=== PATIENT | male | born 1975 | race Caucasian/White ===

== ENCOUNTER 2023-10-12 22:47 | Emergency (ER) | payer MEDICAID, SELFPAY ==
[2023-10-12 22:58] VITALS: BP 157/95; BP 184/112; PULSE 76; PULSE 78; RESP 18; TEMP 37.1; O2SAT 98; BMI 35.2
--- NOTE | 2023-10-13 00:24 | ED_ITS ---
HPI - Fall General Chief Complaint: Fall Stated Complaint: FALL BACKWARDS FROM SEATED,+HEADSTRIKE,1INCH LAC Time Seen by Provider: 10/13/23 00:19 Source: patient Mode of arrival: ambulatory Limitations: no limitations History of Present Illness HPI Narrative: Patient was getting a board game went to sit down nexus over lost balance fell backwards hitting his head to the edge of the table came in with laceration to back of the scalp, no loss of consciousness no other injury Related Data Allergies Allergy/AdvReac Type Severity Reaction Status Date / Time No Known Allergies Allergy Verified 10/12/23 23:17 Review of Systems Review of Systems: Yes all other systems are reviewed and are negative [facility] Social History Social History Alcohol intake: current Smoked in Last 30 Days: No Use of substances other than those prescribed or required for medical reasons: No Advance Directives: No Advance Directives Information Provided: Yes Physical Exam Vital Signs: Vital Signs: Last Vital Signs Temp 98.8 F 10/12/23 22:58 Pulse 76 10/12/23 22:58 Resp 18 10/12/23 22:58 BP 157/95 H 10/12/23 22:58 Pulse Ox 98 10/12/23 22:58 O2 Del Method Room Air 10/12/23 22:58 BMI result Body Mass Index 35.2 Appearance: Alert. Oriented X3. No acute distress. Eyes: PERRLA, No Nystagmus HEENT: Pharynx normal. Oral Mucosa moist laceration to the back of the scalp 3 cm in size Neck: Normal inspection. Neck supple. CVS: Normal heart rate and rhythm. Pulses normal. Respiratory: No respiratory distress. Equal air entry bilateral, Abdomen: Soft and nontender. Skin: Skin warm and dry. Normal skin color. Normal skin turgor. Neuro: Oriented X 3. No motor deficit. No sensory deficit.No cerebellar signs , cranial nerves II-XII intact Medications Administered Discontinued Medications Generic Name Dose Route Start Last Admin Trade Name Freq PRN Reason Stop Dose Admin Bacitracin 1 appl 10/13/23 00:43 10/13/23 01:08 Bacitracin Oint 0.9 Gm Packet TOPICAL 10/13/23 00:44 1 appl ONCE ONE Administration Protocol Procedures Laceration Laceration 1: Site: scalp Size (cm): 4 Description: linear Depth: simple, single layer Skin layer closed with: other (#6 tania) Medical Decision Making Medical Decision Making MDM Narrative: Patient after minor head injury no loss of consciousness clinically minor injury wound sutured using tania Discharge Plan Discharge Clinical Impression: Minor closed head injury, Laceration of scalp Patient Disposition: Home, Self-Care Instructions: Laceration (ED), Head Injury (ED) Additional Instructions: Local care as advised Staple removal in 7-10 days Stand Alone Forms: Work/School Release Interventions: ED Discharge Assessment Last Done: 10/13/23 01:10 Discharge Date/Time: 10/13/23 01:10
--- OUTSIDE RECORDS SUMMARY | 2023-10-13 00:46 | XMS_ITS | Continuity of Care Document ---
Author Name Unknown Organization [facility] Address [address] [place] [address]- Care Team Providers Care Rod Mill Operator Name Role Phone Chantelle Rivers Primary Care Physicia n Encounter [facility] Date(s): 02/28/22 - 02/28/[address] [address]- Discharge Disposition: A-D/C Home Attending Physician: Sergio REGAN, Mindy Harvey Admitting Physician: Mindy Hill MD Referring Physician: Not on Staff, Referring MD Allergies, Adverse Reactions, Alerts No Known Allergies Immunizations Given and Recorded Vaccine Date Status Refusal Reason tetanus/diphtheria/pertussis, acel(Tdap) 01/12/21 Given Medications aspirin 81 mg oral delayed release tablet 81 mg, 1, tablet, By Mouth, Daily, # 30 tablet, Refills 0, Maintenance, 02/28/22 11:43:00 EDT, Partial fill upon patient request if the prescription is for a schedule II opioid drug. Start Date: 02/28/22 Status: Ordered Flexeril Tablet By Mouth, 3 times a day, PRN, Maintenance, as needed for muscle spasm, non daily use due to horse shoe kidney , 03/30/15 15:27:00 Start Date: 03/30/15 Status: Ordered hydrochlorothiazide-olmesartan 12.5 mg-40 mg oral tablet 1 tablet, By Mouth, Daily, # 30 tablet, 0 Refills, Maintenance, 02/28/22 11:43:00 EDT, Tablet, Partial fill upon patient request if the prescription is for a schedule II opioid drug. Start Date: 02/28/22 Status: Ordered lisinopril 10 mg oral tablet 10 mg, 1, tablet, By Mouth, Daily, # 30 tablet, Refills 0, Tot. Refills 0, Maintenance, 11/03/20 15:33:00 EST, Route to Pharmacy Electronically, [facility]/pharmacy #[id number], Partial fill upon patient request if the prescription is for a schedule II opioid drug... Start Date: 11/03/20 Status: Ordered meclizine 25 mg oral tablet 1 tablet = 25 mg, By Mouth, Daily, # 30 tablet, 0 Refills, Maintenance, 02/28/22 11:46:00 EDT, Tablet, Partial fill upon patient request if the prescription is for a schedule II opioid drug. Start Date: 02/28/22 Status: Ordered tramadol 50 mg oral tablet 1 tablet = 50 mg, By Mouth, Every 12 hours, PRN as needed for pain, 0 Refills, Maintenance, 03/30/15 15:26:50, Tablet Start Date: 03/30/15 Status: Ordered Trazodone = 50 mg, By Mouth, Daily at bedtime, ? mg strength, 0 Refills, Maintenance, 03/30/15 15:27:12 Start Date: 03/30/15 Status: Ordered Problem List Condition Effective Dates Status Health Status Inform ant Anxiety(Confirmed) Active Chronic low back pain(Confirmed) Active Depression(Confirmed) Active Limitation due to disability(Confirmed) 1 Active Drug or alcohol risk assessm ent or counseling(Confirmed) 2 Active Horseshoe kidney(Confirmed) Active Lumbar spondylosis(Confirmed) Active 1initial Oswestry Disability Index: 60% ( severe disability ) on 03/30/15; initial [place] Back Pain Scale: 44 on 03/30/15; [place]: 2 on 03/30/15 2SOAPP-R: 39 on 03/30/15 Results Radiology Reports * Exam Date Time Procedure Performing Provider Status 02/28/22 12:48 PM Knee 1 or 2 Views Left Morro Hsieh (Verified) Notes: (Knee 1 or 2 Views Left) Reason For Exam: with Pain;Trauma RESULT: Knee 1 or 2 Views Left Left knee, 2 views Hx of Present Illness: Left Knee pain since Monday. No known injury Constant pulsating sharp pain. Tender upon palpation.; COMPARISON: None. FINDINGS: There is no evidence of acute or healing fracture, dislocation or bone lesion. No arthritic changes. No osteochondral defects or intra-articular loose bodies. No evidence of joint effusion. IMPRESSION: Normal. WSN: [id number] Ordering Physician: Abdelrahman Kumar By: Franck Crabtree MD Dictated Date/Time: 02/28/22 12:52 p Reviewed By: Franck Crabtree MD Signed By: Franck Crabtree MD Signed Date/Time: 02/28/22 12:52 pm Transcribed By: JACINTO Transcribed Date/Time: 02/28/22 12:51 pm Vital Signs Most recent to oldest [Reference Range]: 1 2 Height 175 cm (02/28/22 1:52 PM) 175 cm (02/28/22 11:39 AM) Weight 99.4 kg (02/28/22 11:39 AM) Oxygen Saturation [94-100 %] 99 % (02/28/22 1:52 PM) 98 % (02/28/22 11:39 AM) Pulse Rate [55-90 bpm] 86 bpm (02/28/22 1:52 PM) 86 bpm (02/28/22 11:39 AM) Blood Pressure [90-138/55-84 mm Hg] 136/ 92mm Hg (02/28/22 1:52 PM) 130/79mm Hg (02/28/22 11:39 AM) Respiratory Rate [16-30 br/min] 16 br/mi n (02/28/22 1:52 PM) 20 br/min (02/28/22 11:39 AM) Temperature [96.8-100.4 DegF] 98.5 DegF (02/28/22 1:52 PM) 98.5 DegF (02/28/22 11:39 AM) Mode of Delivery (Oxygen) Room air (02/28/22 1:52 PM) Room air (02/28/22 11:39 AM) Blood pressure sites Arm, left (02/28/22 1:52 PM) Arm, left (02/28/22 11:39 AM) Temperature Route Oral (02/28/22 1:52 PM) Temporal (02/28/22 11:39 AM) Dry Weight 99.4 kg (02/28/22 11:39 AM) Weight Obtained Via Standing scale (02/28/22 11:39 AM)
--- OUTSIDE RECORDS SUMMARY | 2023-10-13 00:46 | XMS_ITS | Continuity of Care Document ---
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 Date(s): 11/03/20 - 11/03/[address] [address]- Discharge Disposition: A-D/C Home Attending Physician: Pelon Cuba MD Admitting Physician: Pelon Cuba MD Referring Physician: Not on Staff, Referring MD Allergies, Adverse Reactions, Alerts Substance Reaction Severity Status NKA Active Medications Flexeril Tablet By Mouth, 3 times a day, PRN, Maintenance, as needed for muscle spasm, non daily use due to horse shoe kidney , 03/30/15 15:27:00 Start Date: 03/30/15 Status: Ordered hydrochlorothiazide-lisinopril 12.5 mg-10 mg oral tablet 1 tablet, By Mouth, Daily, 0 Refills, Maintenance Start Date: 04/07/10 Status: Ordered lisinopril 10 mg oral tablet 10 mg, 1, tablet, By Mouth, Daily, # 30 tablet, Refills 0, Tot. Refills 0, Maintenance, 11/03/20 15:33:00 EST, Route to Pharmacy Electronically, [facility]/pharmacy #[id number], Partial fill upon patient request if the prescription is for a schedule II opioid drug... Start Date: 11/03/20 Status: Ordered PT eval and treat PT eval and treat, See Instructions, # 1 units, Refills 0, Tot. Refills 0, Maintenance, 2/week, 4-6weeks, lumbar stabilization/core muscle strengthening, 04/14/15 9:16:48, Compound Start Date: 04/14/15 Status: Ordered tramadol 50 mg oral tablet 1 tablet = 50 mg, By Mouth, Every 12 hours, PRN as needed for pain, 0 Refills, Maintenance, 03/30/15 15:26:50, Tablet Start Date: 03/30/15 Status: Ordered Trazodone = 50 mg, By Mouth, Daily at bedtime, ? mg strength, 0 Refills, Maintenance, 03/30/15 15:27:12 Start Date: 03/30/15 Status: Ordered Vitamin D 53442 iu oral capsule 1 capsule = 50,000 International_Units, By Mouth, Every week, 0 Refills, Maintenance Start Date: 04/07/10 Status: Ordered Problem List Condition Effective Dates Status Health Status Inform ant Anxiety(Confirmed) Active Chronic low back pain(Confirmed) Active Depression(Confirmed) Active Limitation due to disability(Confirmed) 1 Active Drug or alcohol risk assessm ent or counseling(Confirmed) 2 Active Horseshoe kidney(Confirmed) Active Lumbar spondylosis(Confirmed) Active 1initial Oswestry Disability Index: 60% ( severe disability ) on 03/30/15; initial [place] Back Pain Scale: 44 on 03/30/15; [place]: 2 on 03/30/15 2SOAPP-R: 39 on 03/30/15 Vital Signs Most recent to oldest [Reference Range]: 1 2 3 Height 175 cm (11/03/20 3:42 PM) 175 cm (11/03/20 2:25 PM) 175 cm (11/03/20 2:23 PM) Weight 109 kg (11/03/20 2:25 PM) 109 kg (11/03/20 2:23 PM) Oxygen Saturation [94-100 %] 97 % (11/03/20 3:42 PM) 100 % (11/03/20 2:23 PM) Pulse Rate [55-90 bpm] 70 bpm (11/03/20 3:42 PM) 86 bpm (11/03/20 2:23 PM) Body Mass Index [18.5-24.99] 35.59 *>HHI* (11/03/20 2:23 PM) Blood Pressure [90-138/55-84 mm Hg] 156/109mm Hg *H* (11/03/20 3:42 PM) 171/104mm Hg *H* (11/03/20 2:23 PM) Respiratory Rate [16-30 br/min] 16 br/min (11/03/20 3:42 PM) 18 br/min (11/03/20 2:23 PM) Temperature [96.8-100.4 DegF] 97.9 DegF (11/03/20 2:23 PM) Mode of Delivery (Oxygen) Room air (11/03/20 3:42 PM) Room air (11/03/20 2:23 PM) Blood pressure sites Arm, left (11/03/20 3:42 PM) Arm, left (11/03/20 2:23 PM) Temperature Route Temporal (11/03/20 2:23 PM) Dry Weight 109 kg (11/03/20 2:25 PM) 109 kg (11/03/20 2:23 PM)
--- OUTSIDE RECORDS SUMMARY | 2023-10-13 00:46 | XMS_ITS | Continuity of Care Document ---
Author Name Unknown Organization [facility] Address [address] [place] [address]- Care Team Providers Care Jackhammer Operator Name Role Phone Maria Teresa Figueroa Primary Care Physician Encounter [facility] Date(s): 03/27/21 - 03/27/[address] [address]- Discharge Disposition: A-D/C Walkout Attending Physician: Not on Staff, Attending MD Admitting Physician: Not on Staff, Admitting MD Referring Physician: Not on Staff, Referring MD Allergies, Adverse Reactions, Alerts Substance Reaction Severity Status NKA Active Immunizations Given and Recorded Vaccine Date Status Refusal Reason tetanus/diphtheria/pertussis, acel(Tdap) 01/12/21 Given Medications Flexeril Tablet By Mouth, 3 times a day, PRN, Maintenance, as needed for muscle spasm, non daily use due to horse shoe kidney , 03/30/15 15:27:00 Start Date: 03/30/15 Status: Ordered lisinopril 10 mg oral tablet 10 mg, 1, tablet, By Mouth, Daily, # 30 tablet, Refills 0, Tot. Refills 0, Maintenance, 11/03/20 15:33:00 EST, Route to Pharmacy Electronically, [facility]/pharmacy #[id number], Partial fill upon patient request if the prescription is for a schedule II opioid drug... Start Date: 11/03/20 Status: Ordered tramadol 50 mg oral tablet [...] ( severe disability ) on 03/30/15; initial [place] Back Pain Scale: 44 on 03/30/15; [place]: 2 on 03/30/15 2SOAPP-R: 39 on 03/30/15 Vital Signs Most recent to oldest [Reference Range]: 1 2 3 Height 175 cm (03/27/21 7:42 PM) Weight 106.6 kg (03/27/21 7:42 PM) 106.6 kg (03/27/21 4:41 PM) Oxygen Saturation [94-100 %] 99 % (03/27/21 7:42 PM) 100 % (03/27/21 4:41 PM) 98 % (03/27/21 12:48 PM) Pulse Rate [55-90 bpm] 64 bpm (03/27/21 7:42 PM) 77 bpm (03/27/21 4:41 PM) 80 bpm (03/27/21 12:48 PM) Blood Pressure [90-138/55-84 mm Hg] 146/95mm Hg *H* (03/27/21 7:42 PM) 157/99mm Hg *H* (03/27/21 4:41 PM) Respiratory Rate [16-30 br/min] 16 br/min (03/27/21 7:42 PM) Temperature [96.8-100.4 DegF] 98.1 DegF (03/27/21 7:42 PM) 98.9 DegF (03/27/21 4:41 PM) Mode of Delivery (Oxygen) Room air (03/27/21 7:42 PM) Room air (03/27/21 4:41 PM) Room air (03/27/21 12:48 PM) Blood pressure sites Arm, left (03/27/21 7:42 PM) Arm, left (03/27/21 4:41 PM) Temperature Route Oral (03/27/21 7:42 PM) Dry Weight 106.6 kg (03/27/21 7:42 PM) Weight Obtained Via Standing scale (03/27/21 7:42 PM) Dry Weight Obtained Via Standing scale (03/27/21 7:42 PM)
--- OUTSIDE RECORDS SUMMARY | 2023-10-13 00:46 | XMS_ITS | Continuity of Care Document ---
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 Lining Setter Name Role Phone Maria Teresa Figueroa Primary Care Physician Encounter [facility] Date(s): 01/12/21 - 01/12/[address] [address]- Discharge Disposition: A-D/C Home Attending Physician: Yordy Lei DO Admitting Physician: Yordy Lei DO Referring Physician: Not on Staff, Referring MD Allergies, Adverse Reactions, Alerts Substance Reaction Severity Status NKA Active Immunizations Given and Recorded Vaccine Date Status Refusal Reason tetanus/diphtheria/pertussis, acel(Tdap) 01/12/21 Given Medications bacitracin-polymyxin B ophthalmic 500 u-43432 u/gm ointment 1 inches, Eye, Left, 4 times a day, for 7 days, # 3.5 Gm, 0 Refills, Acute 01/19/21 11:40:00 EDT, 01/12/21 11:40:00 EDT, Ophth Ointment, [facility]/pharmacy #[id number], Partial fill upon patient request if the prescription is for a schedule II opioid drug., 1 inc... Start Date: 01/12/21 Stop Date: 01/19/21 Status: Ordered Flexeril Tablet By Mouth, 3 times a day, PRN, Maintenance, as needed for muscle spasm, non daily use due to horse shoe kidney , 03/30/15 15:27:00 Start Date: 03/30/15 Status: Ordered lisinopril 10 mg oral tablet 10 mg, 1, tablet, By Mouth, Daily, # 30 tablet, Refills 0, Tot. Refills 0, Maintenance, 11/03/20 15:33:00 EST, Route to Pharmacy Electronically, [facility]/pharmacy #[id number], Partial fill upon patient request if the [...] ( severe disability ) on 03/30/15; initial [place] Back Pain Scale: 44 on 03/30/15; [place]: 2 on 03/30/15 2SOAPP-R: 39 on 03/30/15 Vital Signs Most recent to oldest [Reference Range]: 1 2 Height 177 cm (01/12/21 11:48 AM) 177 cm (01/12/21 9:34 AM) Weight 106.9 kg (01/12/21 11:48 AM) 106.9 kg (01/12/21 9:34 AM) Oxygen Saturation [94-100 %] 100 % (01/12/21 11:48 AM) 100 % (01/12/21 9:34 AM) Pulse Rate [55-90 bpm] 66 bpm (01/12/21 11:48 AM) 75 bpm (01/12/21 9:34 AM) Blood Pressure [90-138/55-84 mm Hg] 150/ 76mm Hg *H* (01/12/21 11:48 AM) 161/89mm Hg *H* (01/12/21 9:34 AM) Respiratory Rate [16-30 br/min] 18 br/mi n (01/12/21 11:48 AM) 18 br/min (01/12/21 9:34 AM) Temperature [96.8-100.4 DegF] 98.2 DegF (01/12/21 11:48 AM) 98 DegF (01/12/21 9:34 AM) Mode of Delivery (Oxygen) Room air (01/12/21 11:48 AM) Room air (01/12/21 9:34 AM) Blood pressure sites Arm, right (01/12/21 9:34 AM) Temperature Route Oral (01/12/21 11:48 AM) Oral (01/12/21 9:34 AM) Dry Weight 106.9 kg (01/12/21 11:48 AM) 106.9 kg (01/12/21 9:34 AM) Weight Obtained Via Standing scale (01/12/21 9:34 AM) Dry Weight Obtained Via Standing scale (01/12/21 9:34 AM)
--- OUTSIDE RECORDS SUMMARY | 2023-10-13 00:46 | XMS_ITS | Continuity of Care Document ---
Author Name Unknown Organization [facility] al Address [address] [place] [address]- Care Team Providers Care Division Service Manager Name Role Phone Chantelle Rivers Primary Care Physicia n Encounter [facility] Date(s): 08/10/22 - 08/10/[address] [address]- Discharge Disposition: A-D/C Home Attending Physician: Parish Rhodes MD Admitting Physician: Parish Rhodes MD Referring Physician: Not on Staff, Referring [...] opioid drug. Start Date: 02/28/22 Status: Ordered hydrochlorothiazide-olmesartan 12.5 mg-40 mg oral tablet 1 tablet, By Mouth, Daily, # 30 tablet, 0 Refills, Maintenance, 02/28/22 11:43:00 EDT, Tablet, Partial fill upon patient request if the prescription is for a schedule II opioid drug. Start Date: 02/28/22 Status: Ordered Problem List Condition Confirmation Course Effective Dates Status Health St atus Informant Anxiety Confirmed Active Chronic low back pain Confirmed Active Depression Confirmed Active Limitation due to disability 1 Confirmed Active Drug or alcohol risk assessment or counseling 2 Confirmed Active Horseshoe kidney Confirmed Active Lumbar spondylosis Confirmed Active 1initial Oswestry Disability Index: 60% ( severe disability ) on 03/30/15; initial [place] Back Pain Scale: 44 on 03/30/15; [place]: 2 on 03/30/15 2SOAPP-R: 39 on 03/30/15 Vital Signs Most recent to oldest [Reference Range]: 1 2 Height 175 cm (08/10/22 5:35 PM) Weight 107.1 kg (08/10/22 5:35 PM) Oxygen Saturation [94-100 %] 98 % (08/10/22 8:44 PM) 96 % (08/10/22 5:36 PM) Pulse Rate [55-90 bpm] 72 bpm (08/10/22 8:44 PM) 86 bpm (08/10/22 5:36 PM) Blood Pressure [90-138/55-84 mm Hg] 141/ 91mm Hg *H* (08/10/22 8:44 PM) 155/90mm Hg *H* (08/10/22 5:36 PM) Respiratory Rate [16-30 br/min] 20 br/mi n (08/10/22 8:44 PM) 16 br/min (08/10/22 5:36 PM) Temperature [96.8-100.4 DegF] 98.3 DegF (08/10/22 5:36 PM) Mode of Delivery (Oxygen) Room air (08/10/22 8:44 PM) Room air (08/10/22 5:36 PM) Temperature Route Temporal (08/10/22 5:36 PM) Dry Weight 107.1 kg (08/10/22 5:35 PM) Weight Obtained Via Standing scale (08/10/22 5:35 PM) Dry Weight Obtained Via Standing scale (08/10/22 5:35 PM) Patient Care team information Personnel Name: Chantelle Rivers Address: Address: [address]
--- OUTSIDE RECORDS SUMMARY | 2023-10-13 00:46 | XMS_ITS | Continuity of Care Document ---
Author Name Unknown Organization [facility] al Address [address] [place] [address]- Care Team Providers Care Channel Director Name Role Phone Chantelle Rivers Primary Care Physicia n Encounter [facility] Date(s): 07/06/22 - 12/08/[address] [address]- Attending Physician: Wei Morales MD Admitting Physician: Wei Morales MD Allergies, Adverse Reactions, Alerts No Known [...] [place] Back Pain Scale: 44 on 03/30/15; [place]: 2 on 6/1/15 2SOAPP-R: 39 on 03/30/15 Patient Care team information Care Team Personnel Name: Chantelle Rivers Position: Reference Physician Member Role: PCP Address: Address: [address] [place] [address]- Care Team Related Persons Name: CARLY FARLEY Address: [place] [address] Name: BISI CLARK Name: MARYSOL CLARK Address: home UNKNOWN UM
--- OUTSIDE RECORDS SUMMARY | 2023-10-13 00:46 | XMS_ITS | Continuity of Care Document ---
Author Name Unknown Organization [facility] Address [address] [place] [address]- Care Team Providers Care Hims Clerk Name Role Phone Chantelle Rivers Primary Care Physicia n Encounter [facility] Date(s): 06/28/22 - 07/28/22 [facility] [address] [place] [address]- Attending Physician: Hiral Albright Admitting Physician: Hiral Albright Referring Physician: Hiral Albright Allergies, Adverse Reactions, Alerts No Known Allergies [...] 11/03/20 15:33:00 EST, Route to Pharmacy Electronically, [facility]/pharmacy #[id number], Partial fill upon patient request if the prescription is for a schedule II opioid drug... Start Date: 11/03/20 Status: Ordered meclizine 25 mg oral tablet 1 tablet = 25 mg, By Mouth, Daily, # 30 tablet, 0 Refills, Maintenance, 02/28/22 11:46:00 EDT, Tablet, Partial fill upon patient request if the prescription is for a schedule II opioid drug. Start Date: 02/28/22 Status: Ordered PEG-3350 with Electrolytes Lemon (Eqv-GoLYTELY) oral powder for reconstitution See Instructions, [place] instructions please. Mix the powder with water according to the product label. Follow the [facility] instructions stating when to drink the colon prep on the evening before the colonoscopy. 8 oz every 20 minutes., # 1 each,... Start Date: 06/28/22 Status: Ordered tramadol 50 mg oral tablet 1 tablet = 50 mg, By Mouth, Every 12 hours, PRN as needed for pain, 0 Refills, Maintenance, 03/30/15 15:26:50, Tablet Start Date: 03/30/15 Status: Ordered Trazodone = 50 mg, By Mouth, Daily at bedtime, ? mg strength, 0 Refills, Maintenance, 03/30/15 15:27:12 Start Date: 03/30/15 Status: Ordered Problem List Condition Confirmation Course [...] [place] Back Pain Scale: 44 on 03/30/15; [place]: 2 on 03/30/15 2SOAPP-R: 39 on 03/30/15 Patient Care team information Personnel Name: Chantelle Rivers Address: Address: [address] [place] [address]
[2023-10-13] MEDS: Bacitracin Oint 0.9 GM PACKET 1 APPL TOPICAL (01:08)
== END 2023-10-13 01:10 | disposition home or self-care (01) ==
PROVIDERS: Emergency Provider Internal Medicine
DX: S01.01XA Laceration without foreign body of scalp, initial encounter (principal); W01.10XA Fall on same level from slipping, tripping and stumbling with subsequent striking against unspecified object, initial encounter; Y93.9 Activity, unspecified; Y92.9 Unspecified place or not applicable; Y99.9 Unspecified external cause status
CPT/HCPCS: 12002; 99283; 99284

== ENCOUNTER 2024-10-26 21:52 | Emergency (ER) | payer MEDICAID, SELFPAY ==
[2024-10-26 21:59] VITALS: BP 169/99; PULSE 81; RESP 16; TEMP 36.9; O2SAT 96; BMI 37.2
[2024-10-26 22:36] LABS: MANUAL DIFF FLAG NO
[2024-10-26 22:39] LABS: Basophils Percent Auto 0.3 % (0-2); Eosinophils Absolute Auto 0.1 X10*3/uL (0.0-0.4); Eosinophils Percent Auto 0.6 % (0-4); Hematocrit 36.4 % (42.0-52.0); Hemoglobin 12.9 g/dl (14.0-18.0); Imm Gran Abs Auto 0.06 X10*3/uL (0.00-0.03); Imm Gran Pct Auto 0.5 % (0.0-0.4); Lymphocytes Absolute Auto 2.3 X10*3/uL (1.2-4.9); Lymphocytes Percent Auto 18.4 % (20-40); Mean Corpuscular HGB Conc 35.4 g/dl (31.0-36.0); Mean Corpuscular Hemoglobin 27.4 pg (27.0-33.0); Mean Corpuscular Volume 77.4 fL (80.0-98.0); Mean Platelet Volume 10.1 fL (9.4-12.4); Monocytes Absolute Auto 0.6 X10*3/uL (0.1-1.2); Neutrophils Absolute Auto 9.3 x10*3/uL (2.0-8.3); Neutrophils Percent Auto 75.2 % (45-73); Platelet Count 210 X10*3/uL (160-400); Red Cell Distribution Width 12.5 % (11.0-16.0); White Blood Count 12.4 X10*3/uL (4.8-10.8)
[2024-10-26 22:54] LABS: Alanine Aminotransferase 41 U/L (0-40); Albumin Level 4.3 g/dL (3.5-5.0); Alkaline Phosphatase 101 U/L (39-117); Anion Gap 14 (12-20); Aspartate Amino Transferase 32 U/L (5-37); Bilirubin Total 0.4 mg/dL (0.0-1.0); Blood Urea Nitrogen 18 mg/dL (9-16); Calcium 9.6 mg/dL (8.4-10.2); Carbon Dioxide 24 mmol/L (22-29); Chloride 106 mmol/L (96-108); Creatinine Clr Calc Pharmacy 95.5; Estimated Glomerular Filt Rate > 60; Glucose Random 143 mg/dL (60-115); Potassium 3.3 mmol/L (3.3-5.1); Sodium 141 mmol/L (135-145); Total Protein 7.3 g/dL (6.5-8.0)
--- NOTE | 2024-10-26 23:23 | PC.NURSE ---
Patient provided urine specimen, urine noted to be clear, yellow with 0.4 mm yellow stone. Patient reports some relief in pain after passing a stone. Urine sent to lab.
[2024-10-26 23:24] LABS: Appearance Urine Cloudy; Color Urine Yellow; Glucose Urine UA Negative (Negative); Leukocyte Esterase Urine Negative (Negative); Nitrite Urine Negative (Negative); UMIC TRIGGER UACC YES; Urine Blood Large (3+) (Negative); Urine Ketones Negative (Negative); Urine Protein Negative (Neg-Trace)
[2024-10-26 23:27] LABS: Bacteria Urine None Seen (None Seen); Hyaline Casts Urine 0-2 /LPF (0-2); RBC Urine >20 /HPF (0-2); Squamous Epithelial Cell Urine 0-2 /HPF (0-2); WBC Urine 0-5 /HPF (0-5)
[2024-10-27 00:09] VITALS: BP 156/99; PULSE 69; RESP 16; TEMP 36.8; O2SAT 95
--- NOTE | 2024-10-27 00:45 | ED_ITS ---
HPI - General Adult General Chief complaint: General Medical Stated complaint: left side pain to the abd/HBP from pain? 157/99 Time Seen by Provider: 10/26/24 23:49 Source: patient and family Limitations: language barrier History of Present Illness ED Provider: Neha Armenta PA-C HPI narrative: 49-year-old male with a history of kidney stones presents with left flank pain. Patient's symptoms began today. Patient states he has been only able to void small amounts at a time and has been urinating more frequently. Associated dysuria, hematuria and nausea. No vomiting or fever. While in the waiting room, patient passed the stone, his symptoms are minimal, he rates his pain at a 2. Related Data Previous Rx's ?Medication ?Instructions ?Recorded ketorolac 10 mg tablet 10 mg PO Q6H PRN pain #20 tabs 10/27/24 ondansetron HCl 4 mg tablet 4 mg PO Q8H PRN nausea and 10/27/24 vomiting #10 tabs tamsulosin 0.4 mg capsule (Flomax) 0.4 mg PO DAILY #6 caps 10/27/24 Allergies Allergy/AdvReac Type Severity Reaction Status Date / Time No Known Allergies Allergy Verified 10/26/24 22:11 Review of Systems 2 Review of Systems: Yes all other systems are reviewed and are negative Constitutional: Constitutional: Denies fatigue and Denies fever(s) Cardiovascular: Cardiovascular: Denies chest pain and Denies dyspnea Respiratory: Respiratory: Denies dyspnea Gastrointestinal: Gastrointestinal: Reports abdominal pain, Reports nausea and Denies vomiting Genitourinary: Genitourinary: Reports hematuria, Reports dysuria, Reports flank pain, Reports urinary frequency and Reports urinary hesitancy Endocrine: Endocrine: Denies fatigue [facility] Past Medical History Attestation statement: The following information was validated with the patient. Social History Social History Alcohol intake: current Advance Directives: No Advance Directives Information Provided: Yes Do you have a plan to hurt others: No Plan Physical Exam ED Vital Signs: Vital Signs - 24 hr 10/26/24 21:59 10/27/24 00:09 Temperature 98.5 F 98.3 F Pulse Rate 81 69 Respiratory Rate 16 16 Blood Pressure 169/99 H 156/99 H Pulse Oximetry 96 95 Oxygen Delivery Method Room Air Room Air BMI result Body Mass Index 37.2 Const Other: Alert, well in appearance Orientation/consciousness: patient oriented x3 Resp Effort & Inspection: normal respiratory effort Cardio Other: Normal peripheral perfusion Skin Other: Warm dry no rash Neuro General: patient oriented x3, no focal motor deficits and CN's II-XI intact bilaterally Psych Other: Calm cooperative Medical Decision Making Medical Decision Making MDM Narrative: 49-year-old male with a history of kidney stones presents with left flank pain. Patient's symptoms began today. Patient states he has been only able to void small amounts at a time and has been urinating more frequently. Associated dysuria, hematuria and nausea. No vomiting or fever. While in the waiting room, patient passed the stone, his symptoms are minimal, he rates his pain at a 2. Problem: Kidney stones History: Per patient I have considered the following differential diagnoses: Renal colic, pyelonephritis, UTI Plan: Patient passed a stone, labs and urinalysis are unremarkable. We will give a dose of Flomax and Toradol, and we will send the patient with return precautions. No indication for imaging at this time. I have independently reviewed the following tests: Labs: Slight leukocytosis, not anemic, no electrolyte abnormality, urine not infected but is passing hematuria Lab Data 10/26/24 22:31 10/26/24 22:31 Labs: Lab Results 10/26/24 10/26/24 Range/Units 22:31 23:17 WBC 12.4 H (4.8-10.8) X10*3/uL RBC 4.70 (4.60-5.80) X10*6/uL Hgb 12.9 L (14.0-18.0) g/dl Hct 36.4 L (42.0-52.0) % MCV 77.4 L (80.0-98.0) fL MCH 27.4 (27.0-33.0) pg MCHC 35.4 (31.0-36.0) g/dl RDW 12.5 (11.0-16.0) % Plt Count 210 (160-400) X10*3/uL MPV 10.1 (9.4-12.4) fL Immature Gran % (Auto) 0.5 H (0.0-0.4) % Neut % (Auto) 75.2 H (45-73) % Lymph % (Auto) 18.4 L (20-40) % [place] % (Auto) 5.0 (2-11) % Eos % (Auto) 0.6 (0-4) % Baso % (Auto) 0.3 (0-2) % Lymph # (Auto) 2.3 (1.2-4.9) X10*3/uL [place] # (Auto) 0.6 (0.1-1.2) X10*3/uL Eos # (Auto) 0.1 (0.0-0.4) X10*3/uL Baso # (Auto) 0.0 (0.0-0.2) X10*3/uL Abs Immat Gran (auto) 0.06 H (0.00-0.03) X10*3/uL Absolute Neuts (auto) 9.3 H (2.0-8.3) x10*3/uL Absolute Nucleated RBC 0.000 (0.0-0.012) X10*3/uL Nucleated RBC % (auto) 0.0 (0.0-0.2) /100WBC Sodium 141 (135-145) mmol/L Potassium 3.3 (3.3-5.1) mmol/L Chloride 106 (96-108) mmol/L Carbon Dioxide 24 (22-29) mmol/L Anion Gap 14 (12-20) BUN 18 H (9-16) mg/dL Creatinine 1.14 (0.5-1.4) mg/dL Estim Creat Clear Calc 95.5 Estimated GFR > 60 Random Glucose 143 H (60-115) mg/dL Calcium 9.6 (8.4-10.2) mg/dL Total Bilirubin 0.4 (0.0-1.0) mg/dL AST 32 (5-37) U/L ALT 41 H (0-40) U/L Alkaline Phosphatase 101 (39-117) U/L Total Protein 7.3 (6.5-8.0) g/dL Albumin 4.3 (3.5-5.0) g/dL Urine Color Yellow Urine Appearance Cloudy Urine pH 5.0 (5.0-9.0) Ur Specific [place] 1.010 (1.005-1.025) Urine Protein Negative (Neg-Trace) mg/dL Urine Glucose (UA) Negative (Negative) mg/dL Urine Ketones Negative (Negative) mg/dL Urine Blood Large (3+) H (Negative) Urine Nitrite Negative (Negative) Ur Leukocyte Esterase Negative (Negative) Urine RBC >20 H (0-2) /HPF Urine WBC 0-5 (0-5) /HPF Ur Squamous Epith Cells 0-2 (0-2) /HPF Urine Bacteria None Seen (None Seen) Hyaline Casts 0-2 (0-2) /LPF Discharge Plan Discharge Clinical Impression: Renal colic on left side Patient Disposition: Home, Self-Care Instructions: Renal Colic (ED) Additional Instructions: All of your labs were normal including your renal function. Your urine is not infected, you are passing some blood in the urine. If you develop symptoms again, uses Zofran as needed for nausea, use the ketorolac as needed for pain. Take the Flomax as directed, this will help induce urine flow. Complete that prescription. Return precautions for inability to urinate, intractable vomiting, severe pain or fever. Prescriptions: New tamsulosin [Flomax] 0.4 mg capsule 0.4 mg PO DAILY Qty: 6 0RF ketorolac 10 mg tablet 10 mg PO Q6H PRN (Reason: pain) Qty: 20 0RF Rx Instructions: maximum total duration of 5 days from all oral, intranasal, or parenteral formulations. The patient had an intramuscular dose of Toradol here in the emergency department. ondansetron HCl 4 mg tablet 4 mg PO Q8H PRN (Reason: nausea and vomiting) Qty: 10 0RF Print Language: Turkmen
[2024-10-27] MEDS: Tamsulosin HCL 0.4 MG CAPSULE PO (01:09)
[2024-10-27 01:30] VITALS: BP 156/99; PULSE 69; RESP 16; TEMP 36.8; O2SAT 95
== END 2024-10-27 01:31 | disposition home or self-care (01) ==
PROVIDERS: Emergency Provider Emergency Medicine
DX: N23 Unspecified renal colic (principal); Z87.442 Personal history of urinary calculi
CPT/HCPCS: 36415; 80053; 81001; 85025; 99283; 99284

== ENCOUNTER 2024-12-16 08:58 | Emergency (ER) | payer MEDICAID, SELFPAY ==
--- NOTE | ~2024-12-16 | XR_ITS ---
CLINICAL HISTORY: swelling pain 3 view left hand Comparison: None Findings: No acute fracture or dislocation. Two punctate opacities in the volar soft tissues of the far palmar aspect of the hand without soft tissue gas. Chronicity can not be determined. May be chronic although correlation for possible recent penetrating injury. Generalized soft tissue swelling noted. Couple tiny opacities also seen at the 4th digit PIP joint dorsally. Minimal degenerative arthritis in the IP joints. No advanced arthritic changes. No erosions. No periostitis. Impression: Generalized nonspecific soft tissue edema. No soft tissue gas. Punctate densities within the far ulnar aspect of the palmar hand and at the 4th digit PIP joint. Changes may be chronic although of uncertain chronicity and correlation for possible penetrating injury. No acute fracture. This document has been electronically signed by: David Stuart MD on 12/16/2024 09:54:47
[2024-12-16 09:00] VITALS: BP 145/85; PULSE 104; RESP 20; TEMP 36.1; O2SAT 96; BMI 35.9
--- OUTSIDE RECORDS SUMMARY | 2024-12-16 09:26 | XMS_ITS | Clinical Summary ---
Author Organization [facility] ity Address [address] [place] [address] Care Team Providers Care Global Sourcing Manager Name Role Phone Chantelle Avalos Primary Care Provider Medical History Medical History Date Comments Essential hypertension DX:Essent ial hypertension Hyperlipidemia DX:Hyperlipidemi a HTN (hypertension) DX:HTN (hyper tension) Family History Medical History Relation Name Comments Hypertension Father Hypertension Maternal Grandfather Diabetes Mother Hypertension Paternal Grandfather Coronary artery disease Neg Hx Relation Name Status Comments Father Alive Maternal Grandfather Mother Alive Paternal Grandfather Social History Tobacco Use Types Packs/Day Years Used Date Smoking Tobacco: Former Smokeless Tobacco: Never Alcohol Use Standard Drinks/Week Comments Not Currently 0 (1 standard drink = 0.6 oz pur e alcohol) Sex and Gender Information Value Date Recorded Sex Assigned at Not on file Legal Sex Male 4:38 AM EST Gender Identity Not on file Sexual Orientation Not on file Obstetrics History Last Filed Vital Signs Vital Sign Reading Time Taken Comments Blood Pressure 130/90 07/26/2023 12:56 PM EDT Si tting L Arm Pulse 64 07/26/2023 12:56 PM EDT Temperature - - Respiratory Rate - - Oxygen Saturation - - Inhaled Oxygen Concentration - - Weight 103 kg (226 lb) 07/26/2023 12:56 PM EDT Height 175.3 cm (5' 9 ) 07/26/2023 12:56 PM EDT Body Mass Index 33.37 07/26/2023 12:56 PM EDT Plan of Treatment Health Maintenance Due Date Last Done Comments DTaP,Tdap,and Td Vaccines (1 - Tdap) 1992 Hepatitis B Vaccines (1 of 3 - 19+ 3-dose series) 1992 Pneumococcal Vaccine: 50+ Ye ars (1 of 1 - PCV) 2023 Zoster Vaccines (1 of 2) 2023 Cholesterol Screening (Lipid Panel) 11/28/2023 Colorectal Cancer Screening: Colonoscopy 11/28/2023 HIV Screening 11/28/2023 Hepatitis C Screening 11/28/2023 Hypertension/CHF/CAD Annual BMP Blood Test 11/28/2023 Social Influencers of Health Screening 11/28/2023 COVID-19 Vaccine (1 - 2023-2 5 season) 2024 Influenza Vaccine (#1) 2024 Depression Screening 02/20/2025 02/21/2024 HIB Vaccines Aged Out No longer eligi ble based on patient's age to complete this topic HPV Vaccines Aged Out No longer eligi ble based on patient's age to complete this topic Hepatitis A Vaccines Aged Out No long er eligible based on patient's age to complete this topic IPV Vaccines Aged Out No longer eligi ble based on patient's age to complete this topic MMR Vaccines Aged Out No longer eligi ble based on patient's age to complete this topic Meningococcal ACWY Vaccine Aged Out N o longer eligible based on patient's age to complete this topic Meningococcal B Vacine Aged Out No lo nger eligible based on patient's age to complete this topic Pneumococcal Vaccine: Pediat rics (0 to 5 Years) and At-Risk Patients (6 to 64 Years) Aged Out No longer eligi ble based on patient's age to complete this topic RSV Immunization Patients Un rehan 20 months Aged Out No longer eligible b ased on patient's age to complete this topic Varicella Vaccines Aged Out No longer eligible based on patient's age to complete this topic Care Teams Global Sourcing Manager Relationship Specialty Start Date End Date Chantelle Avalos PA [address] [place] [id number] PCP - General 12/23/22
--- OUTSIDE RECORDS SUMMARY | 2024-12-16 09:26 | XMS_ITS | Clinical Summary ---
Author Organization [facility] Address [address] [place] [address] Care Team Providers Care Certified Prosthetist Name Role Phone Chantelle Avalos PA-C Primary Care Provider + [phone] Source Comments PLEASE NOTE, if this patient is a minor, it may be UNLAWFUL to discuss sensitive information that is contained in these records (such as FAMILY PLANNING, MENTAL HEALTH or SUBSTANCE ABUSE) with the minor patient's parent or other person without the patient's specific authorization.[facility] Allergies No known active allergies Medications meclizine (ANTIVERT) 25 mg tabletIndications :Vertigo TAKE 1 TABLET BY MOUTH ONCE DAILY NEEDED FOR DIZZINESS 30 Tablet 01/15/20 23 Active acetaminophen (TYLENOL) 500 mg tabletIndications :Acute nonintractable headache, unspecified headache type Take 1 Tablet by mouth every 6 (six) hours as needed for pain 90 Tablet 02/21/20 24 Active aspirin [address] tabletIndications :Hypertension, unspecified type TOME 1 TABLETA POR VIA ORAL TODOS LOS HOANG 90 Tablet 1 08/07/20 24 Active metoprolol succinate XL (TOPROL-XL) 50 mg 24 hr tabletIndications :Hypertension, unspecified type,Palpitation TOME 1 TABLETA POR VIA ORAL TODOS LOS HOANG 90 Tablet 1 08/07/20 24 Active olmesartan-hydroc hlorothiazide (BENICAR HCT) 40-12.5 mg per tabletIndications :Hypertension, unspecified type TOME 1 TABLETA POR VIA ORAL TODOS LOS HOANG 90 Tablet 1 08/07/20 24 Active naproxen (NAPROSYN) 500 mg tabletIndications :Acute right-sided low back pain with right-sided sciatica,Gout of left knee, unspecified cause, unspecified chronicity Take 1 Tablet by mouth 2 (two) times daily with a meal 30 Tablet 1 08/22/20 24 Active gabapentin (NEURONTIN) 300 mg capsuleIndication s:Acute right-sided low back pain with right-sided sciatica,Gout of left knee, unspecified cause, unspecified chronicity Take 1 Capsule by mouth 2 (two) times daily 30 Capsule 08/22/20 24 Active allopurinoL (ZYLOPRIM) 100 mg tabletIndications :Gout of left knee, unspecified cause, unspecified chronicity Take 1 Tablet by mouth once daily 90 Tablet 1 08/22/20 24 Active amLODIPine (NORVASC) 5 mg tabletIndications :Primary hypertension TOME 1 TABLETA POR VIA ORAL TODOS LOS HOANG 90 Tablet 1 08/22/20 24 Active atorvastatin (LIPITOR) 40 mg tabletIndications :Hypertension, unspecified type,Palpitation TOME 1 TABLETA POR VIA ORAL TODOS LOS HOANG 90 Tablet 1 11/04/19 25 Active melatonin 5 mg tabIndications:In somnia, unspecified type TOME 1 TABLETA POR VIA ORAL TODOS LOS HOANG AL ACOSTARSE 90 Tablet 11/22/19 25 Active melatonin 5 mg tabIndications:In somnia, unspecified type TOME 1 TABLETA POR VIA ORAL TODOS LOS HOANG AL ACOSTARSE 90 Tablet 08/16/20 24 025 Discontinued Active Problems Problem Noted Date Diagnosed Date BMI 36.0-36.9,adult 06/24/2024 Insomnia 06/07/2012 Vitamin D deficiency disease 08/19/2009 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 Seen via urology 10/19/09 told congenital anomaly no intervention needed. Obesity Overview (05/31/2013): BMI = 31.3 08/31/09 BMI = 32.8 03/30/11 LBP (low back pain) Overview (01/15/2014): MRI 07/15/09 = Mild DDD/DJD, L4-L5 disc bulge posterior HTN (hypertension) Allergic conjunctivitis and rhinitis Hyperlipidemia Fatty liver Overview (05/31/2013): US 04/20/11 Encounters Date Type Department Care Team Description 11/15/2024 Travel 10/22/2024 3:00 PM EST Office Visit [facility] [address] [place] [phone] Rob Najera Dental caries on smooth surface penetrating into dentin (Primary Dx); Caries of enamel (incipient); Retained tooth root; Fracture of crown, enamel, and dentin of tooth with pulp exposure; Dental caries on smooth surface penetrating into pulp; Fracture of crown, enamel, and dentin of tooth without pulp exposure 10/22/2024 Travel 10/11/2024 Interim Notes [facility] [address] [place] [address] Adelina Morales LPN from Last 3 Months Immunizations Name Administration Dates Next Due Hep A, adult 08/19/2009 Hep B, Adult/Adol (ENERGIX/RECOMBIVAX) 0,12/10/2009,08/31/2009 INFLUENZA, SEASONAL, INJECTABLE 08/30/2012 Family History Medical History Relation Name Comments Hypertension Father Heart Problems Mother Hypertension Mother Relation Name Status Comments Father Mother Social History Tobacco Use Types Packs/Day Years Used Date Smoking Tobacco: Never Passive Smoke Exposure: Never Smokeless Tobacco: Never Tobacco Cessation:Counseling Given: Not Answered Alcohol Use Standard Drinks/Week Comments No 0 (1 standard drink = 0.6 oz pur e alcohol) Social Connections Answer Date Recorded Connectedness 0 08/03/2024 Financial Resource Strain Answer Date R ecorded Financial Resource Strain 0 2021 Stress Answer Date Recorded Stress 0 11/27/2021 Physical Activity Answer Date Recorded Physical Activity 0 11/27/2021 Food Insecurity Answer Date Recorded Food 0 07/25/2024 Transportation Needs Answer Date Record ed Transportation 0 11/27/2021 Housing Stability Answer Date Recorded Housing 0 11/27/2021 Safety and Environment Answer Date Octavio rded Safety 0 11/27/2021 Utilities Answer Date Recorded Utilities 0 11/27/2021 Employment Answer Date Recorded Stress 0 08/03/2024 Sex and Gender Information Value Date Recorded Sex Assigned at Male 02/14/2022 7:40 AM PDT Legal Sex Male 11:36 AM PDT Gender Identity Male 02/14/2022 7:40 AM PDT Sexual Orientation Straight 02/14/2022 7: 40 AM PDT Last Filed Vital Signs Vital Sign Reading Time Taken Comments Blood Pressure 128/88 10/22/2024 3:05 PM EST Pulse 76 10/22/2024 3:05 PM EST Temperature 37.1 ??C (98.8 ??F) 08/22/2024 1:21 PM ED T Respiratory Rate 20 06/24/2024 3:50 PM EDT Oxygen Saturation 95% 08/22/2024 1:21 PM EDT Inhaled Oxygen Concentration - - Weight 112.5 kg (248 lb) 06/24/2024 3:50 PM EDT Height 175.3 cm (5' 9 ) 06/24/2024 3:50 PM EDT Body Mass Index 36.62 06/24/2024 3:50 PM EDT Plan of Treatment Upcoming Encounters Date Type Department Care Team (Late st Contact Info) Description 12/17/2024 1:40 PM EST Office Visit [facility] [place] [phone] Bryon Gabriel DDS [address] [place] [address] 02/07/2025 4:20 PM EDT Office Visit [facility] [address] [place] [phone] Chantelle Avalos PA-C [address] [place] [address] 04/23/2025 3:40 PM EDT Office Visit [facility] [address] [place] [phone] Rob Najera [address] [place] [id number] Health Maintenance Due Date Last Done Comments Dental Perio Charting 1973 Imm-Hepatitis B (3 of 3 - 19 + 3-dose series) 03/09/2010 01/12/2010, 12/10/2009, 08/31/2009 CT Colonography 2018 Colonoscopy 2018 Colorectal Cancer Screening 2018 FIT/gFOBT 2018 Fecal DNA 2018 Flexible Sigmoidoscopy 2018 Imm-Zoster, Recombinant (1 of 2) 2023 Lipid Screening 01/31/2024 01/30/2023, 01/28, 03/12/2015, Additional history exists Imm-Influenza (#1) 2024 08/30/2012 Alcohol and Drug Screen 10/30/2024 06/24/20, 01/30/2023, 02/14/2022, Additional history exists Depression Annual Screen 10/30/2024 02/21/2024, 05/0 03/2015 Annual Preventive Care Visit 06/24/2025, 03/04/2015, 01/15/2014 Tobacco Screening 06/24/2025 06/24/2024 Dental BW 10/24/2025 10/22/2024 Dental Examination 10/24/2025 10/22/2024 Dental Prophy 10/24/2025 10/22/2024 Diabetes Screening 12/07/2025 12/07/2022, 0 02/14/2022, 02/14/2022, Additional history exists Dental FMX/Pano 10/24/2029 10/22/2024 Imm-DTaP/Tdap/Td (2 - Td or Tdap) 01/12/2031 021 HIV Screening Completed 02/14/2022 Hepatitis C Screening Completed 02/14/2022 [id number] Discontinued Procedures Procedure Name Priority Date/Time Associated Diagnosis Comments DENTAL CASE MANAGEMENT - MOTIVATIONAL INTV Routine 10/22/2024 3:00 PM EST Dental caries on smooth surface penetrating into dentin Caries of enamel (incipient) Retained tooth root Fracture of crown, enamel, and dentin of tooth with pulp exposure Dental caries on smooth surface penetrating into pulp PROPHYLAXIS - ADULT Routine 10/22/2024 3 :00 PM EST Dental caries on smooth surface penetrating into dentin Caries of enamel (incipient) Retained tooth root Fracture of crown, enamel, and dentin of tooth with pulp exposure Dental caries on smooth surface penetrating into pulp INTRAORAL - COMP SERIES OF RADIOGRAPHIC IMAGES Routine 10/22/2024 3:00 PM EST Retained tooth root Caries of enamel (incipient) Dental caries on smooth surface penetrating into dentin Dental caries on smooth surface penetrating into pulp Fracture of crown, enamel, and dentin of tooth without pulp exposure Fracture of crown, enamel, and dentin of tooth with pulp exposure COMP ORAL EVALUATION - NEW/ESTABLISHED PATIENT Routine 10/22/2024 3:00 PM EST Dental caries on smooth surface penetrating into dentin Caries of enamel (incipient) Retained tooth root Fracture of crown, enamel, and dentin of tooth with pulp exposure Dental caries on smooth surface penetrating into pulp CARIES RISK ASSESSMENT & DOC FINDING HIGH RISK Routine 10/22/2024 3:00 PM EST Dental caries on smooth surface penetrating into dentin Caries of enamel (incipient) Retained tooth root Fracture of crown, enamel, and dentin of tooth with pulp exposure Dental caries on smooth surface penetrating into pulp NUTRITIONAL COUNSELING CONTROL OF DENTAL DISEASE Routine 10/22/2024 3:00 PM EST Dental caries on smooth surface penetrating into dentin Caries of enamel (incipient) Retained tooth root Fracture of crown, enamel, and dentin of tooth with pulp exposure Dental caries on smooth surface penetrating into pulp ORAL HYGIENE INSTRUCTIONS Routine 10/22/2024 3:00 PM EST Dental caries on smooth surface penetrating into dentin Caries of enamel (incipient) Retained tooth root Fracture of crown, enamel, and dentin of tooth with pulp exposure Dental caries on smooth surface penetrating into pulp ORAL CANCER SCREENING Routine 10/22/2024 3:00 PM EST Dental caries on smooth surface penetrating into dentin Caries of enamel (incipient) Retained tooth root Fracture of crown, enamel, and dentin of tooth with pulp exposure Dental caries on smooth surface penetrating into pulp CASE PRESENTATION SUBS DTL & EXTENSIVE TX PLN Routine 10/22/2024 3:00 PM EST Dental caries on smooth surface penetrating into dentin Caries of enamel (incipient) Retained tooth root Fracture of crown, enamel, and dentin of tooth with pulp exposure Dental caries on smooth surface penetrating into pulp 3 LO AMALGAM - WISDOM (NON BILLABLE) Routine 10/22/2024 12:00 AM EST LIPIDS W RFLX TO DIRECT LDL Routine 01/30/2023 9:44 AM EDT Palpitation Hypertension, unspecified type COMPREHENSIVE METABOLIC PANEL Routine 12/07/2022 9:20 AM EST Palpitation HIV 1/2 AG & AB W/RFLX (4TH GEN) Routine 02/14/2022 11:09 AM EDT Routine lab draw HEPATITIS C AB W/RFLX HCV RNA, QT, RT PCR Routine 02/14/2022 11:09 AM EDT Routine lab draw from Last 3 Months or Most Recently Relevant to Health Maintenance Results * (ABNORMAL) LIPIDS W RFLX TO DIRECT LDL (01/30/2023 9:44 AM EDT) [facility] CHOLESTEROL, TOTAL 166 <200 mg/dL [facility] HDL CHOLESTEROL 31(L) > OR = 40 mg/dL [facility] TRIGLYCERIDES 259(H) <150 mg/dL [employer] [facility] Comment: If a non-fasting specimen was collected, consider repeat triglyceride testing on a fasting specimen if clinically indicated. Denise et al. J. of Clin. Lipidol. 2015;9:129-169. LDL-CHOLESTEROL 98 99 mg/dL (calc) [facility] Comment: Reference range: <100 Desirable range <100 mg/dL for primary prevention; ?? <70 mg/dL for patients with CHD or diabetic patients with > or = 2 CHD risk factors. LDL-C is now calculated using the Ant-Fisher calculation, which is a validated novel method providing better accuracy than the Friedewald equation in the estimation of LDL-C. Ant JARA et al. CHRISTINE. 2013;310(19): 4949-1352 (http://education.[employer]/faq/HSP241) CHOL/HDLC RATIO 5.4(H) <5.0 (calc) [facility] NON-HDL CHOLESTEROL 135(H) <130 mg/dL (calc) [employer] [facility] Comment: For patients with diabetes plus 1 major ASCVD risk factor, treating to a non-HDL-C goal of <100 mg/dL (LDL-C of <70 mg/dL) is considered a therapeutic option. Blood Blood / Unknown 01/30/2023 9 :44 AM EDT 01/30/2023 9:44 AM EDT Narrative [employer] - 01/30/2023 8:00 PM EDT FASTING:UNKNOWN us Chantelle Avalos PA-C LAB - BLOOD DRAW Final Resul t [facility] [address] [address], [employer] [facility] [address] [place] [address] * (ABNORMAL) COMPREHENSIVE METABOLIC PANEL (12/07/2022 9:20 AM EST) GLUCOSE 111(H) 65 - 99 mg/dL [facility] Comment: ?Fasting reference interval For someone without known diabetes, a glucose value between 100 and 125 mg/dL is consistent with prediabetes and should be confirmed with a follow-up test. UREA NITROGEN (BUN) 20 7 - 25 mg/dL [employer] [facility] CREATININE (blood) 1.12 0.60 - 1.29 mg/dL [employer] [facility] EGFR 81 > OR = 60 mL/min/1 .73m2 [employer] [facility] Comment: The eGFR is based on the CKD-EPI 2020 equation. To calculate the new eGFR from a previous Creatinine or Cystatin C result, go to https://www.kidney.org/professionals/ kdoqi/gfr%5Fcalculator BUN/CREATININE RATIO NOT APPLICABLE 6 - [employer] [facility] SODIUM 141 135 - 146 mmol/L [employer] [facility] POTASSIUM 3.9 3.5 - 5.3 mmol/L [employer] [facility] CHLORIDE 106 98 - 110 mmol/L [employer] [facility] CARBON DIOXIDE 30 20 - 32 mmol/L [employer] [facility] CALCIUM 9.6 8.6 - 10.3 mg/dL [employer] [facility] PROTEIN, TOTAL 6.8 6.1 - 8.1 g/dL [employer] [facility] ALBUMIN 4.5 3.6 - 5.1 g/dL [employer] [facility] GLOBULIN 2.3 1.9 - 3.7 g/dL (calc) [employer] [facility] ALBUMIN/GLOBUL IN RATIO 2.0 1.0 - 2.5 (calc) [employer] [facility] BILIRUBIN, TOTAL 0.5 0.2 - 1.2 mg/dL [employer] [facility] ALKALINE PHOSPHATASE 73 36 - 130 U/L [employer] [facility] AST 25 10 - 40 U/L [employer] [facility] ALT 40 9 - 46 U/L [facility] Blood Blood / Unknown 12/07/2022 9 :20 AM EST 12/07/2022 9:21 AM EST Chantlele Avalos PA-C LAB - BLOOD DRAW Final Resul t Performing Organization Address [facility] Co de Phone Number [employer] [address] [address], [employer] [address] ([address]) [place] [address] * HEPATITIS C AB W/RFLX HCV RNA, QT, RT PCR (02/14/2022 11:09 AM EDT) HEPATITIS C ANTIBODY NON-REACT SANDRA NON-REACT SANDRA [facility] SIGNAL TO CUT-OFF 0.01 <1.00 [employer] Comment: HCV antibody was non-reactive. There is no laboratory evidence of HCV infection. In most cases, no further action is required. However, if recent HCV exposure is suspected, a test for HCV RNA (test code 03682) is suggested. For additional information please refer to http://education.[employer]/faq/AKD23c3 (This link is being provided for informational/ educational purposes only.) Blood Blood / Unknown 02/14/2022 1 1:09 AM EDT 02/14/2022 11:10 AM EDT Chantelle Avalos PA-C LAB - BLOOD DRAW Edited Resu lt - Final Performing Organization Address City/[facility]/ZIP Co de Phone Number [facility] [address] [address], [employer] [address] [address] * HIV 1/2 AG & AB W/RFLX (4TH GEN) (02/14/2022 11:09 AM EDT) HIV AG/AB, 4TH GEN NON-REAC TIVE NON-REAC TIVE [facility] Comment: HIV-1 antigen and HIV-1/HIV-2 antibodies were not detected. There is no laboratory evidence of HIV infection. PLEASE NOTE: This information has been disclosed to you from records whose confidentiality may be protected by state law. ??If your state requires such protection, then the state law prohibits you from making any further disclosure of the information without the specific written consent of the person to whom it pertains, or as otherwise permitted by law. A general authorization for the release of medical or other information is NOT sufficient for this purpose. ?? For additional information please refer to http://education.[employer]/faq/JGU898 (This link is being provided for informational/ educational purposes only.) The performance of this assay has not been clinically validated in patients less than 2 years old. Blood Blood / Unknown 02/14/2022 1 1:09 AM EDT 02/14/2022 11:10 AM EDT us Chantelle Avalos PA-C LAB - BLOOD DRAW Final Resul t [facility] [address] [address], [facility] [address] [address] from Last 3 Months or Most Recently Relevant to Health Maintenance Insurance [facility] [place] Care Teams Certified Prosthetist Relationship Specialty Start Date End Date Chantelle Avalos PA-C [address] [place] [address] PCP - General Internal Medicine 11/27/21
--- NOTE | 2024-12-16 09:32 | ED_ITS ---
HPI - Extremity Problem General Chief complaint: Extremity Problem Stated complaint: L Hand Swelling Time Seen by Provider: 12/16/24 09:08 History of Present Illness HPI Narrative: Patient complains of a week of swelling and discomfort in the left middle finger as well as some discomfort in the hand, it hurts to bend the middle finger, he denies any injury there is no redness so swelling no fever no other joints or fingers affected, he has no history of any arthritic disease, no history of psoriasis Related Data Previous Rx's ?Medication ?Instructions ?Recorded ketorolac 10 mg tablet 10 mg PO Q6H PRN pain #20 tabs 10/27/24 ondansetron HCl 4 mg tablet 4 mg PO Q8H PRN nausea and 10/27/24 vomiting #10 tabs tamsulosin 0.4 mg capsule (Flomax) 0.4 mg PO DAILY #6 caps 10/27/24 naproxen 500 mg tablet (Naprosyn) 500 mg PO BID PRN pain #20 tabs 12/16/24 prednisone 20 mg tablet 60 mg (3 x 20 mg) PO DAILY 3 days 12/16/24 #9 tabs Allergies Allergy/AdvReac Type Severity Reaction Status Date / Time No Known Allergies Allergy Verified 12/16/24 09:02 [facility] Past Medical History Source: nursing notes reviewed Social History Social History Alcohol intake: current Advance Directives: No Advance Directives Information Provided: Yes Physical Exam Vital Signs: Vital Signs: Last Vital Signs Temp 96.9 F 12/16/24 10:22 Pulse 104 H 12/16/24 10:22 Resp 20 12/16/24 10:22 BP 145/85 H 12/16/24 10:22 Pulse Ox 96 12/16/24 10:22 O2 Del Method Room Air 12/16/24 10:22 BMI result Body Mass Index 35.9 General appearance no acute distress comfortable Neck is supple Respiratory no distress Extremities the left hand is mildly swollen in the left middle finger, left middle finger extends fully but it is uncomfortable and flexes to about 90 degrees it both D IP and PIP as well as MCP, other fingers do not appear to be affected, there is also some swelling of the dorsum of the hand but there is no redness no warmth, no lymphangitis no wound no break in the skin Other extremities normal Skin no rash Course Course Course Narrative: X-ray of left hand was without acute findings except for soft tissue swelling no gas, there were some punctate densities possible foreign bodies but they are not acute there is no recent injury, no sign of infection Patient is advised he may have some kind of arthritis or inflammation is sent home on an anti-inflammatory Naprosyn and advised to follow with his doctor for possible referral to child care associate teacher and orthopedist for further evaluation On discharge the patient mentioned that he forgot to tell me he has gout so there is a very good chance this inflammation is gout and we started prednisone Medications Administered Discontinued Medications Generic Name Dose Route Start Last Admin Trade Name Freq PRN Reason Stop Dose Admin Prednisone 60 mg 12/16/24 10:25 12/16/24 10:28 Prednisone 20 Mg Tablet PO 12/16/24 10:26 60 mg ONCE ONE Administration Discharge Plan Discharge Clinical Impression: Hand swelling Patient Disposition: Home, Self-Care Additional Instructions: There is no recent inj Because you have a history of gout there is a very good chance this is gout so we started prednisone ury, at this time there is no sign of infection, the swelling could be some kind of arthritic process so best plan is follow with primary doctor for possible referral to child care associate teacher Also you can try to follow with the orthopedist as if they think it is an inflammatory process they may place a steroid injection If the hand turns red or becomes more painful and swollen return to the ER any time for any change or worse condition or any concerns Prescriptions: New naproxen [Naprosyn] 500 mg tablet 500 mg PO BID PRN (Reason: pain) Qty: 20 0RF prednisone 20 mg tablet 60 mg PO DAILY 3 Days Qty: 9 0RF No Action tamsulosin [Flomax] 0.4 mg capsule 0.4 mg PO DAILY Qty: 6 0RF ketorolac 10 mg tablet 10 mg PO Q6H PRN (Reason: pain) Qty: 20 0RF Rx Instructions: maximum total duration of 5 days from all oral, intranasal, or parenteral formulations. The patient had an intramuscular dose of Toradol here in the emergency department. ondansetron HCl 4 mg tablet 4 mg PO Q8H PRN (Reason: nausea and vomiting) Qty: 10 0RF Referrals: Jody Black MD [Physician] - (Hand swelling) Stand Alone Forms: Work/School Release Interventions: ED Discharge Assessment Last Done: 12/16/24 10:22 Discharge Date/Time: 12/16/24 10:29 Print Language: Afghan
[2024-12-16 10:22] VITALS: BP 145/85; PULSE 104; RESP 20; TEMP 36.1; O2SAT 96
[2024-12-16] MEDS: predniSONE 20 MG TABLET 60 MG PO (10:28)
== END 2024-12-16 10:29 | disposition home or self-care (01) ==
PROVIDERS: Emergency Provider Emergency Medicine; PCP Physician Assistant
DX: M79.642 Pain in left hand (principal)
CPT/HCPCS: 73130; 99282; 99283

== ENCOUNTER → 2024-12-16 09:15 | Outpatient (BNV) | payer MEDICAID, SELFPAY | PROVIDERS: Emergency Provider Emergency Medicine; PCP Physician Assistant; Visit Provider Radiology Diagnostic Radiology | DX: M19.042 Primary osteoarthritis, left hand (principal) | CPT/HCPCS: 73130 ==

== ENCOUNTER 2025-01-23 08:59 | Outpatient (REF) | payer MEDICAID, SELFPAY | END 2025-01-23 09:00 | disposition home or self-care (01) | LOC: HO.HOSX 08:59 | DX: Z13.89 Encounter for screening for other disorder (principal) ==

== ENCOUNTER 2025-02-25 13:31 | Outpatient (REF) | payer MEDICAID, SELFPAY ==
--- OUTSIDE RECORDS SUMMARY | 2025-02-25 15:33 | XMS_ITS | Clinical Summary ---
Author Organization [facility] Address [address] [place] [address] Care Team Providers Care Field Service Supervisor Name Role Phone Chantelle Avalos Primary Care [...] Vaccine (1 - 2023-2 5 season) 2024 Depression Screening 02/20/2025 02/21/2024 Influenza Vaccine (Season Ended) 2025 HIB Vaccines Aged Out No longer eligi [...] age to complete this topic Meningococcal B Vaccine Aged Out No l onger eligible based on patient's age to complete [...] age to complete this topic Care Teams Field Service Supervisor Relationship Specialty Start Date End Date Chantelle Avalos PA [address] [place] [id number] PCP - General 12/23/22
--- OUTSIDE RECORDS SUMMARY | 2025-02-25 15:33 | XMS_ITS | Clinical Summary ---
Author Organization [facility] Address [address] [place] [address] Care Team Providers Care Pharmacovigilance Specialist Name Role Phone Chantelle Avalos PA-C Primary Care Provider + [phone] Source Comments PLEASE NOTE, if this patient [...] for pain 90 Tablet 02/21/20 24 Active naproxen (NAPROSYN) 500 mg tabletIndications [...] times daily 30 Capsule 08/22/20 24 Active amLODIPine (NORVASC) 5 mg [...] AL ACOSTARSE 90 Tablet 11/22/19 25 Active olmesartan-hydroc hlorothiazide (BENICAR HCT) 40-12.5 mg per tabletIndications :Hypertension, unspecified type TOME 1 TABLETA POR VIA ORAL TODOS LOS HOANG 90 Tablet 1 02/03/20 25 Active aspirin [address] tabletIndications :Hypertension, unspecified type TOME 1 TABLETA POR VIA ORAL TODOS [place] HOANG 90 Tablet 1 02/03/20 25 Active metoprolol succinate XL (TOPROL-XL) 50 mg 24 hr tabletIndications :Hypertension, unspecified type,Palpitation TOME 1 TABLETA POR VIA ORAL TODOS LOS HOANG 90 Tablet 1 02/03/20 25 Active allopurinoL (ZYLOPRIM) 100 mg tabletIndications :Gout of left knee, unspecified cause, unspecified chronicity TOME ALEX TABLETA POR VIA ORAL A DIARIO 90 Tablet 1 02/14/20 25 Active aspirin [address] tabletIndications :Hypertension, unspecified type TOME 1 TABLETA POR VIA ORAL TODOS [place] HOANG 90 Tablet 1 08/07/20 24 025 Discontinued metoprolol succinate XL (TOPROL-XL) 50 mg 24 hr tabletIndications :Hypertension, unspecified type,Palpitation TOME 1 TABLETA POR VIA ORAL TODOS LOS HOANG 90 Tablet 1 08/07/20 24 025 Discontinued olmesartan-hydroc hlorothiazide (BENICAR HCT) 40-12.5 mg per tabletIndications :Hypertension, unspecified type TOME 1 TABLETA POR VIA ORAL TODOS [place] HOANG 90 Tablet 1 08/07/20 24 025 Discontinued allopurinoL (ZYLOPRIM) 100 mg tabletIndications :Gout of left knee, unspecified cause, unspecified chronicity Take 1 Tablet by mouth once daily 90 Tablet 1 08/22/20 24 025 Discontinued Active Problems Problem Noted [...] Encounters Date Type Department Care Team Description 12/20/2024 10:00 AM EST Telemedicine Visit [address] [phone] Class 2 severe obesity due to excess calories with serious comorbidity and body mass index (BMI) of 36.0 to 36.9 in adult ([facility]) (Primary Dx) from Last 3 Months Immunizations Immunization Administration Dates Next Due Hep A, adult [...] Care Team (Late st Contact Info) Description 04/23/2025 3:40 PM EDT Office Visit [facility] [address] [place] [address] Rob Najera [address] [place] [id number] Health Maintenance Due Date Last Done Comments Anxiety Screening 1973 Dental Perio Charting 1973 Imm-Hepatitis B (3 of 3 - 19 + 3-dose series) 03/09/2010 01/12/2010, 12/10/2009, 08/31/2009 CT Colonography 2018 Colonoscopy 2018 Colorectal Cancer Screening 2018 FIT/gFOBT 2018 Fecal DNA 2018 Flexible Sigmoidoscopy 2018 Imm-Zoster, Recombinant (1 of 2) 2023 Lipid Screening 01/31/2024 01/30/2023, 04/1 05/2022, 03/12/2015, Additional history exists Imm-Influenza (#1) 2024 08/30/2012 Alcohol and Drug Screen 10/30/2024 06/24/20 24, 01/30/2023, 02/14/2022, Additional history exists Depression Annual [...] Completed 02/14/2022 Hepatitis C Screening Completed 02/14/2022 [id number] Discontinued Procedures Procedure Name Priority Date/Time Associated Diagnosis Comments IMAGING SCANNED DOCUMENT 12/16/2024 3:00 AM EST IMAGING SCANNED DOCUMENT 12/16/2024 3:00 AM EST INTRAORAL - COMP SERIES OF RADIOGRAPHIC IMAGES Routine 10/22/2024 3:00 PM EST Retained tooth root Caries of enamel (incipient) Dental caries on smooth surface penetrating into dentin Dental caries on smooth surface penetrating into pulp Fracture of crown, enamel, and dentin of tooth without pulp exposure Fracture of crown, enamel, and dentin of tooth with pulp exposure PROPHYLAXIS - ADULT Routine 10/22/2024 3 :00 PM EST Dental caries on smooth surface penetrating into dentin Caries of enamel (incipient) Retained tooth root Fracture of crown, enamel, and dentin of tooth with pulp exposure Dental caries on smooth surface penetrating into pulp COMP ORAL EVALUATION - NEW/ESTABLISHED PATIENT Routine 10/22/2024 3:00 PM EST Dental caries on smooth surface penetrating into dentin Caries of enamel (incipient) Retained tooth root Fracture of crown, enamel, and dentin of tooth with pulp exposure Dental caries on smooth surface penetrating into pulp LIPIDS W RFLX TO DIRECT LDL Routine [...] Recently Relevant to Health Maintenance Results * IMAGING SCANNED DOCUMENT (12/16/2024 3:00 AM EST) Only the most recent of2 resultswithin the time period is included. 12/16/2024 3:00 AM EST Chantelle Avalos PA-C SCAN IMAGING Final Result * (ABNORMAL) LIPIDS W RFLX TO DIRECT LDL (01/30/2023 9:44 AM EDT) CHOLESTEROL, TOTAL 166 <200 mg/dL [facility] HDL CHOLESTEROL 31(L) > OR = 40 mg/dL [facility] TRIGLYCERIDES 259(H) <150 mg/dL [facility] Comment: If a non-fasting specimen was collected, consider repeat triglyceride testing on a fasting specimen if clinically indicated. Denise et al. J. of Clin. Lipidol. 2015;9:129-169. LDL-CHOLESTEROL 98 99 mg/dL (calc) [facility] Comment: Reference range: <100 Desirable range <100 mg/dL for primary prevention; ?? <70 mg/dL for patients with CHD or diabetic patients with > or = 2 CHD risk factors. LDL-C is now calculated using the Pablo calculation, which is a validated novel method providing better accuracy than the Friedewald equation in the estimation of LDL-C. Ant JARA et al. CHRISTINE. 2013;310(19): 8654-8434 (http://education.Proviation/faq/HHF972) CHOL/HDLC RATIO 5.4(H) <5.0 (calc) [facility] NON-HDL CHOLESTEROL 135(H) <130 mg/dL (calc) [facility] Comment: For patients with diabetes plus 1 major ASCVD risk factor, treating to a non-HDL-C goal of <100 mg/dL (LDL-C of <70 mg/dL) is considered a therapeutic option. Blood Blood / Unknown 01/30/2023 9 :44 AM EDT 01/30/2023 9:44 AM EDT Narrative [facility] - 01/30/2023 8:00 PM EDT FASTING:UNKNOWN Chantelle Avalos PA-C LAB - BLOOD DRAW Final Resul t [facility] [address] [address], [facility] [address] [place] [address] * (ABNORMAL) COMPREHENSIVE METABOLIC PANEL (12/07/2022 9:20 AM EST) Pathologist [facility] GLUCOSE 111(H) 65 - 99 mg/dL [facility] Comment: ?Fasting reference interval For someone without known diabetes, a glucose value between 100 and 125 mg/dL is consistent with prediabetes and should be confirmed with a follow-up test. UREA NITROGEN (BUN) 20 7 - 25 mg/dL [facility] CREATININE (blood) 1.12 0.60 - 1.29 mg/dL [facility] EGFR 81 > OR = 60 mL/min/1 .73m2 [facility] Comment: The eGFR is based on the CKD-EPI 2020 equation. To calculate the new eGFR from a previous Creatinine or Cystatin C result, go to https://www.kidney.org/professionals/ kdoqi/gfr%5Fcalculator BUN/CREATININE RATIO NOT APPLICABLE 6 - [facility] SODIUM 141 135 - 146 mmol/L [facility] POTASSIUM 3.9 3.5 - 5.3 mmol/L [facility] CHLORIDE 106 98 - 110 mmol/L [facility] CARBON DIOXIDE 30 20 - 32 mmol/L [facility] CALCIUM 9.6 8.6 - 10.3 mg/dL [facility] PROTEIN, TOTAL 6.8 6.1 - 8.1 g/dL [facility] ALBUMIN 4.5 3.6 - 5.1 g/dL [facility] GLOBULIN 2.3 1.9 - 3.7 g/dL (calc) [facility] ALBUMIN/GLOBUL IN RATIO 2.0 1.0 - 2.5 (calc) [facility] BILIRUBIN, TOTAL 0.5 0.2 - 1.2 mg/dL [facility] ALKALINE PHOSPHATASE 73 36 - 130 U/L [facility] AST 25 10 - 40 U/L [facility] ALT 40 9 - 46 U/L [facility] Blood Blood / Unknown 12/07/2022 9 :20 AM EST 12/07/2022 9:21 AM EST Chantelle Avalos PA-C LAB - BLOOD DRAW Final Resul t [facility] [address] [address], [facility] [address] ([facility]) [place] [address] * HEPATITIS C AB W/RFLX HCV RNA, QT, RT PCR (02/14/2022 11:09 AM EDT) HEPATITIS C ANTIBODY NON-REACT SANDRA NON-REACT SANDRA [facility] SIGNAL TO CUT-OFF 0.01 <1.00 [facility] Comment: HCV antibody was non-reactive. There is no laboratory evidence of HCV infection. In most cases, no further action is required. However, if recent HCV exposure is suspected, a test for HCV RNA (test code 96940) is suggested. For additional information please refer to http://education.Press About Us/faq/PBI52x8 (This link is being provided for informational/ educational purposes only.) Blood Blood / Unknown 02/14/2022 1 1:09 AM EDT 02/14/2022 11:10 AM EDT Chantelle Avalos PA-C LAB - BLOOD DRAW Edited Resu lt - Final Performing Organization Address [facility] Co de Phone Number [facility] [address] [address], [facility] [address],[place] [address] * HIV 1/2 AG & AB W/RFLX (4TH GEN) (02/14/2022 11:09 AM EDT) HIV AG/AB, 4TH GEN NON-REAC TIVE NON-REAC TIVE [facility] Comment: HIV-1 antigen and HIV-1/HIV-2 antibodies were [...] ?? For additional information please refer to http://education.Press About Us/faq/AHU269 (This link is being provided for informational/ educational purposes only.) The performance of this assay has not been clinically validated in patients less than 2 years old. Blood Blood / Unknown 02/14/2022 1 1:09 AM EDT 02/14/2022 11:10 AM EDT Chantelle Avalos PA-C LAB - BLOOD DRAW Final Resul t Performing Organization Address City/[facility]/ZIP Co de Phone Number [facility] [address] [address], [facility] [address],[place] [address] from Last 3 Months or Most Recently Relevant to Health Maintenance Insurance [id number] [place] Care Teams Pharmacovigilance Specialist Relationship Specialty Start Date End Date Chantelle Avalos PA-C [address] [place] [address] PCP - General Internal Medicine 11/27/21
== END 2025-02-25 13:32 | disposition home or self-care (01) ==
LOC: HO.HOSX 13:31
DX: Z13.89 Encounter for screening for other disorder (principal)